=== PATIENT | male | born 1990 | race African-American/Black ===

== ENCOUNTER 2017-12-14 13:23 | Emergency (ER) | payer OTHER ==
[2017-12-14 13:40] VITALS: BP 116/62; PULSE 70; TEMP 98.7; BMI 25.0
[2017-12-14] MEDS ORDERED: AZITHROMYCIN 1 GM PACKET PO ONE ×2 (14:05→14:11)
[2017-12-14] MEDS ORDERED: RANITIDINE HCL 150 MG TABLET (FP) PO ONE (14:12)
--- NOTE | 2017-12-14 14:16 | PDOC ---
History of Present Illness - General Chief Complaint: Penile Drainage Stated Complaint: STD TESTING - History of Present Illness Initial Comments: 27-year-old male without comorbidities presents for evaluation of STDs. He has no symptoms he is concerned because he has multiple sexual partners. 12/14/17 14:13 Past History - Past Medical History Allergies/Adverse Reactions: Allergies Allergy/AdvReac Type Severity Reaction Status Date / Time amoxicillin Allergy Verified 12/14/17 13:37 Home Medications: Ambulatory Orders NK [No Known Home Medication] 12/14/17 COPD: No - Suicide/Smoking/Psychosocial Hx Smoking History: Never smoked Review of Systems - Review of Systems All Other Systems: Reviewed and Negative *Physical Exam - Vital Signs Last Vital Signs Temp Pulse Resp BP Pulse Ox 98.7 F 70 18 116/62 96 12/14/17 13:37 12/14/17 13:37 12/14/17 13:37 12/14/17 13:37 12/14/17 13:37 - Physical Exam Comments: HEAD: NC/AT EYES: Conjuntiva clear Ears: Canals and TM's normal NOSE: No d/c THROAT: Moist mucous membrances, oral pharanx clear, uvula midline NECK: Supple without adenopathy CARDIAC: S1 S2 LUNGS: CTA Full and Equal breath sounds ABDOMEN: Soft NT ND MS: Full ROM in all joints without edema NEUROLOGIC: No gross sensory or motor deficits, NVID SKIN: Normal color and temperature no lesions or rashes External genitalia is normal 12/14/17 14:13 Medical Decision Making - Medical Decision Making I will test for GC and chlamydia. He is declined HIV testing. He will be treated for GC and chlamydia. Refused RPR and HIV testing. As per UTD, tx for gc and chlamydia in penicillin allergic patients is 2 G zithromax x1 dose. 12/14/17 14:13 12/14/17 14:31 12/14/17 14:31 *DC/Admit/Observation/Transfer Diagnosis at time of Disposition: Concern about STD in male without diagnosis - Discharge Dispostion Disposition: HOME Condition at time of disposition: Stable Decision to Admit order: No - Referrals Referrals: Zane Blackmon [Non Staff, Medical] - - Patient Instructions Printed Discharge Instructions: Facts About Sexually Transmitted Infections Additional Instructions: Return to the emergency room she develop any symptoms. He was treated today for gonorrhea and chlamydia. Please follow-up with a primary care physician I recommended for a wooden once 2 days further evaluation and treatment options. - Post Discharge Activity
[2017-12-14] MEDS ORDERED: AZITHROMYCIN 250 MG TABLET ONE (14:47)
[2017-12-14] MEDS ORDERED: RANITIDINE HCL 150 MG TABLET (FP) ONE (14:48)
[2017-12-14] MEDS ORDERED: AZITHROMYCIN 250 MG TABLET PO ONE (14:51)
[2017-12-14 14:57] LABS: URINE APPEARANCE CLOUDY; URINE BILIRUBIN NEGATIVE (<2.0 mg/dL); URINE COLOR YELLOW; URINE GLUCOSE (UA) NEGATIVE (NEGATIVE); URINE KETONE NEGATIVE (NEGATIVE); URINE LEUK ESTERASE NEGATIVE (NEGATIVE); URINE NITRITE NEGATIVE (NEGATIVE); URINE PROTEIN NEGATIVE (NEGATIVE)
== END 2017-12-14 15:09 | disposition home or self-care (01) ==
LOC: JERFT 13:23
DX: Z11.3 Encounter for screening for infections with a predominantly sexual mode of transmission (principal)
CPT/HCPCS: 36415; 81003; 87491; 87591; 99281-25